=== PATIENT | female | born 1955 | race African-American/Black ===

== ENCOUNTER → 2016-12-09 | Outpatient (CLI) | payer BC ==
[2014-11-17 13:15] VITALS: BP 155/77
[~2016-12-09] MED LIST: BENZ200C39 PO; BUDE10.22 IH; CITA10TA4 PO; COD1CAPS2 PO; CYCL10TA2 PO; HYDR1TAB26 PO; NAPR220C4 PO; PANT40TA5 PO; PROAIR HFA8.5 GM IH; TRAM50TA PO
--- NOTE | 2016-12-09 10:30 | KCIC ---
PROCEDURE MRI cervical spine without contrast. HISTORY Cervical radiculopathy, degenerative joint disease, new right arm pain and numbness into the right hand, previous fusion in 2009 TECHNIQUE Multiplanar, multi sequential non contrast MR imaging was performed of the cervical spine. COMPARISON July 05, 2012 FINDINGS There is some motion degradation. There again has been anterior cervical fusion C5, C6, C7. Cervical vertebral body AP alignment is adequate. Cervical cord caliber is within normal limits, no obvious or expansile signal abnormality, limited evaluation for subtle signal change in part from motion. There is no significant abnormality of the cervical medullary junction. There is no significant marrow edema. Intervertebral disc spaces at non fused levels are adequate. C2-C3: Neural foramina and spinal canal are adequate. There is minimal left uncovertebral degenerative change. C3-4: There is bilateral facet hypertrophic change, also uncovertebral degenerative change greater on the left. There is negligible posterior bulge. Central canal is borderline 10 millimeters. There is likely moderate to severe neural foramina compromise bilaterally somewhat greater on the left. C4-5: Spinal canal is adequate. There is severe bilateral facet degenerative change greater on the left. Spinal canal is adequate. Right neural foramen is adequate. There is fairly severe narrowing of the left neural foramen. C5-C6: There is bilateral facet hypertrophic change. Spinal canal is adequate. Neural foramina are overall adequate. C6-C7: Spinal canal is adequate. Right neural foramen is adequate, suspected moderate to severe narrowing of the left neural foramen by osteophytes. C7-T1: Central canal is borderline 10 millimeters. There is facet hypertrophic change greater on the left. Right neural foramen is adequate, moderate to severe narrowing of the left neural foramen. IMPRESSION 1. There has been anterior cervical fusion at C5, C6, C7. 2. There is no significant cervical spinal stenosis. 3. There is multilevel facet and uncovertebral degenerative change which contributes to multilevel neural foramina compromise as stated greatest bilaterally at C3-4 and on the left at C4-C5, C6-7, and C7-T1. Electronically signed by: Jackson Avila MD (Dec 09, 2016 10:29:40)
== END | disposition home or self-care (01) ==
LOC: KCIC MRI 09:07
PROVIDERS: ATTEND Family Medicine
DX: Z12.31 Encounter for screening mammogram for malignant neoplasm of breast (principal); M54.12 Radiculopathy, cervical region
CPT/HCPCS: 72141; G0202; 77067

== ENCOUNTER → 2016-12-17 | Outpatient (CLI) | payer BC ==
[2014-11-17 13:15] VITALS: BP 155/77
--- NOTE | 2016-12-17 16:00 | KCIC ---
Bilateral breast ultrasound: Reason for examination: Nodular densities on screening mammogram. Comparison is made to mammographic exam dated 12/09/2016. Ultrasound was performed in the areas of clin mammographic concern bilaterally. In the right breast at the 3 o'clock position 8 centimeters from the nipple, there is a small 5.9 millimeter hypoechoic fibrocystic type lesion without a benign appearance. Revaluation in 6 months is recommended. No other focal lesions are seen in the right breast. No abnormal lymph nodes are seen in the right axilla. In the left breast at the 2 o'clock position 4 centimeters from the nipple, there is a 1.1 centimeter lobulated nodule which would correspond with the area of mammographic concern. Further evaluation with ultrasound-guided biopsy is recommended. No other focal lesions are seen. No abnormal lymph nodes are seen in left axilla. Impression: Benign appearing fibrocystic type lesion measuring 5.9 millimeters in the right breast at the 3 o'clock position. Recommend 6 month sonographic followup. 1.1 centimeters solid-appearing lobulated nodule in the left breast at the 2 o'clock position 4 centimeters from the nipple. Recommend ultrasound-guided biopsy. BI-RADS category 4: Suspicious. Ultrasound biopsy is recommended. The patient was notified of these findings at the time of her examination. Dr. Zulma Palacios was called with this report on 12/17/2016 at 3:54 p.m. This patient's information has been entered into a reminder system for the patient to be notified with the results of this examination and a target date for her next mammograms. Electronically signed by: Alka Batista MD (Dec 17, 2016 15:58:34)
== END | disposition home or self-care (01) ==
LOC: KCIC US 13:26
PROVIDERS: ATTEND Family Medicine
DX: R92.8 Other abnormal and inconclusive findings on diagnostic imaging of breast (principal)
CPT/HCPCS: 76641

== ENCOUNTER → 2016-12-31 | Outpatient (CLI) | payer BC ==
[2014-11-17 13:15] VITALS: BP 155/77
[~2016-12-31] MED LIST changes: +IOHEXOL 300 MG/ML 50 ML VIAL. IT ONE; +LIDOCAINE 1% Multi-Dose 20 ML VIAL. ID ONE
--- NOTE | 2016-12-31 10:26 | KCIC ---
PROCEDURE Fluoroscopic guided lumbar puncture for cervical myelography; cervical spine CT myelogram. HISTORY Neck pain and bilateral upper extremity radiculopathy. Limited range of motion. TECHNIQUE The risks of the procedure were discussed with the patient and written and verbal consent was obtained. A time-out was performed. Fluoroscopic imaging of the lumbar spine was performed and a site overlying L4-L5 was selected for needle entry. The skin overlying this region was sterilely prepped, draped and infiltrated with 1 percent lidocaine. A 25 gauge needle was advanced into the thecal sac and appropriate needle tip position was confirmed with spontaneous CSF within the needle hub. 10 cc Omnipaque 300 was then injected into the thecal sac. The needle was removed and a sterile bandage was placed at the needle entry site. The contrast column was then advanced to the cervical levels. Three fluoroscopic images were obtained in the prone lateral and bilateral oblique positions. The total fluoroscopy time was 54 seconds. The patient was then transferred to the CT suite for the post injection CT portion of the exam. The patient tolerated the procedure without difficulty was discharged in stable condition. One or more of the following individualized dose reduction techniques were utilized for this examination: 1. Automated exposure control; 2. Adjustment of the mA and/or kV according to patient size; 3. Use of iterative reconstruction technique. COMPARISON MRI dated 12/09/2016. 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 There is no evidence of instrumentation fracture or loosening. There is slight deformation of the ventral aspect of the spinal cord at C5-C6 due to posterior bony bridging, without significant central canal stenosis. There is minimal anterolisthesis of C3 on C4 and C4 on C5. The vertebral bodies are normal in height. There is anterior endplate osteophytosis at C4-C5. The skullbase and posterior fossa are unremarkable. There is a small inferior endplate Schmorl's node within the right aspect of C2. At C2-C3, there is endplate remodeling with a right inferior endplate Schmorl's node. There is no stenosis. At C3-C4, there is a disc bulge and endplate remodeling. There is left greater than right uncovertebral arthropathy. There is severe facet arthropathy. There is moderate to severe right and severe left foraminal stenosis. There is deviation of the left ventral nerve ramus. There is slight thickening or buckling of the ligamentum flavum. There is mild central canal stenosis measuring 9.1 mm in anterior-posterior dimension. At C4-C5, there is a disc bulge and endplate remodeling. There is anterior endplate osteophytosis. There is uncovertebral arthropathy. There is moderate right and severe left facet arthropathy. There is moderate right and moderate to severe left foraminal stenosis. There is deviation of the left ventral nerve ramus. At C5-C6, there is instrumented fusion. There is prominent posterior bony bridging which slightly flattens the ventral aspect of the spinal cord. There is left uncovertebral arthropathy. There is moderate right and mild left facet arthropathy. There is [id number] left foraminal stenosis. At C6-C7, there is instrumented fusion. There is left uncovertebral arthropathy. There is deformity of the left lamina, likely postoperative in etiology. There is mild left greater than right facet arthropathy. There is moderate to severe left foraminal stenosis. At C7-T1, there is a disc bulge and endplate remodeling. There is no stenosis. IMPRESSION 1. Instrumented anterior spinal fusion and interbody fusion at C5 through C7. There is bony bridging at the fused levels. Prominent posterior bony bridging at C5-C6 slightly deforms the ventral aspect of the spinal cord without significant central canal stenosis. There is uncovertebral and facet arthropathy at these levels, contributing to mild to moderate left foraminal stenosis at C5-C6 and moderate to severe left foraminal stenosis at C6-C7. 2. Multilevel degenerative change throughout the remainder of the cervical spine, described in detail above. This results in moderate severe right and severe left foraminal stenosis and mild central canal stenosis at C3-C4 and moderate right and moderate to severe left foraminal stenosis at C4-C5. Electronically signed by: Yessy Carlin (Dec 31, 2016 10:24:40)
== END | disposition home or self-care (01) ==
LOC: KCIC 08:09
PROVIDERS: ATTEND Neurological Surgery
DX: M48.06 Spinal stenosis, lumbar region (principal)
CPT/HCPCS: 72126; 72240; Q9967

== ENCOUNTER → 2017-01-12 | Outpatient (CLI) | payer BC ==
[~2017-01-12] VITALS: Ht 160 cm; Wt 84.8 kg
[~2017-01-12] MED LIST changes: +ASPI-482 PO; -IOHEXOL 300 MG/ML 50 ML VIAL. IT ONE; -LIDOCAINE 1% Multi-Dose 20 ML VIAL. ID ONE; +NAPR500T PO
[2017-01-12 08:56] VITALS: BP 144/74
--- NOTE | 2017-01-12 10:53 | RAD ---
Indication: Left breast mass. Patient presents for ultrasound-guided biopsy. The patient was brought to the ultrasound suite and placed on the table in the supine position. Ultrasound imaging of the left breast was performed to evaluate the appropriate entry site. The left breast was then prepped and draped in the usual sterile fashion. A small amount of 1% lidocaine was utilized for local anesthesia. A 14-gauge Bard needle was advanced and placed with the tip adjacent to the lobulated mass at the 2:00 location of the left breast. A total of 4 core biopsies were performed. A localizer clip was deployed adjacent to the mass. Hemostasis was obtained using manual compression. The patient tolerated the procedure well and left the department in stable condition. Impression: Successful ultrasound-guided biopsy of the lobulated hypoechoic mass at the 2:00 location of the left breast. Results are currently pending.
== END | disposition home or self-care (01) ==
LOC: US 08:19
PROVIDERS: ATTEND Surgery
DX: N63 Unspecified lump in breast (principal)
CPT/HCPCS: 76942; C1713; G0206; 77065

== ENCOUNTER → 2017-01-23 | Outpatient (CLI) | payer BC ==
[~2017-01-23] VITALS: Ht 160 cm; Wt 84.8 kg
[~2017-01-23] MED LIST changes: +LIDOCAINE 1%/EPI 1:100,000 20 ML VIAL. INJ ONE
[2017-01-23 07:50] VITALS: BP 135/74
--- NOTE | 2017-01-23 09:19 | RAD ---
DATE: 01/23/2017 EXAM: DIGITAL DIAGNOSTIC RT, BREAST RIGHT HISTORY: Suspicious screening study and outside ultrasound COMPARISON: 12/09/2016, 12/17/2016 This study was interpreted with the benefit of Computerized Aided Detection (CAD). FINDINGS: Additional views of the right breast were obtained and correlated with the screening study. The fibroglandular pattern is heterogeneously dense. There is a small, smooth, 6 mm nodule in the posterior aspect of the right breast at the 3:00 location, as best delineated on the straight mediolateral and MLO views. It is only intermittently visualized on the cc views due to overlying fibroglandular shadows. No associated microcalcifications are seen. Right breast ultrasound, 01/23/2017: A targeted ultrasound exam of the right breast was performed. Heterogeneous fibroglandular shadows are seen. No mass is identified to correspond with the nodule seen on the mammograms. There are branching ducts visualized, most prominent centrally. The possible nodule described on the outside ultrasound exam cannot be reproduced sonographically. Ultrasound-guided biopsy is therefore not feasible. Stereotactic biopsy of the nodule seen mammographically may be problematic due to its far posterior location. IMPRESSION: The mammograms demonstrate a small smooth nodule at the 3:00 location in the right breast. No sonographic correlate could be identified. Given the patient's known left breast cancer, MR imaging of the breasts may be useful for further evaluation. BI-RADS CATEGORY: 0 INCOMPLETE: NEEDS ADDITIONAL IMAGING EVALUATION AND/OR PRIOR MAMMOGRAMS FOR COMPARISON. RECOMMENDED FOLLOW-UP: ADD ADDITIONAL IMAGING PQRS compliance statement: Patient information was entered into a reminder system with a target due date for the next mammogram. Mammography is a sensitive method for finding small breast cancers, but it does not detect them all and is not a substitute for careful clinical examination. A negative mammogram does not negate a clinically suspicious finding and should not result in delay in biopsying a clinically suspicious abnormality. "Our facility is accredited by the [employer] Mammography Program."
== END | disposition home or self-care (01) ==
LOC: US 07:11
PROVIDERS: ATTEND Surgery
DX: N63 Unspecified lump in breast (principal)
CPT/HCPCS: 76641; G0206; 77065

== ENCOUNTER → 2017-02-24 | Outpatient (CLI) | payer BC ==
[2017-02-24] VITALS (8 sets, daily range): BP systolic 112–139; BP diastolic 59–77
[~2017-02-24] VITALS: Ht 162.6 cm; Wt 81.6 kg
[~2017-02-24] MED LIST changes: -BENZ200C39 PO; +BENZ200C47 PO; +CITA40TA5 PO; +CLINDAMYCIN 600MG PREMIX 50 ML IV ONE; +HEPARIN PF 500 UNIT/5 ML DISP.SYRIN. IV ONE; +LIDOCAINE 1% / SOD BICARB 8.4% 20 ML VIAL. IJ ONE; +LIDOCAINE 1%/EPI 1:100,000 20 ML VIAL. ONE; +MIDAZOLAM HCL/PF 5 MG/5 ML VIAL. IV ONE; +MIDAZOLAM HCL/PF 5 MG/5 ML VIAL. ONE; +TRAZ50TA15 PO; +VANCOMYCIN 1GM IVPB FOR OMNI 250 ML ONE; +fentaNYL PF VIAL 100 MCG/2 ML VIAL IV ONE; +fentaNYL PF VIAL 100 MCG/2 ML VIAL ONE
[2017-02-24 07:44] LABS: BASO # 0.1 x10^3/uL (0.0-0.2); BASO % 1 % (0-3); EOS % 0 % (0-3); HEMATOCRIT 36.8 % (36.0-47.0); LYMPH # 0.8 x10^3/uL (1.0-4.8); LYMPH % 11 % (24-48); MEAN CORPUSCULAR HEMOGLOBIN 30 pg (25-35); MEAN CORPUSCULAR HGB CONC 35 g/dL (31-37); MEAN CORPUSCULAR VOLUME 85 fL (79-100); MONO % 4 % (0-9); NEUT % 84 % (31-73); PLATELET COUNT 202 x10^3/uL (140-400); RED BLOOD COUNT 4.31 x10^6/uL (3.50-5.40); RED CELL DISTRIBUTION WIDTH 19.6 % (11.5-14.5); WHITE BLOOD COUNT 7.4 x10^3/uL (4.0-11.0)
[2017-02-24 07:54] LABS: PROTHROMBIN TIME PATIENT 12.9 SEC (11.7-14.0)
--- NOTE | 2017-02-24 08:58 | PDOC ---
MODERATE SEDATION ASSESSMENT RISKS/ALTERNATIVES Risks/Alternatives Risks and alternatives of this type of sedation and procedure discussed with: RISK/ALTERNATIVES: Patient H & P ON CHART H & P H & P on chart and reviewed for co-morbid conditions and appropriate labs. H&P ON CHART: Yes STATUS PREG STATUS ASSESSED: N/A MEDS/ALLERGIES REVIEWED Meds/Allergies Reviewed Medications and Allergies including time and route of recently administered narcotics and sedatives. MEDS/ALLERGIES REVIEWED: Yes ASA RATING ASA RATING: II AIRWAY ASSESSMENT Airway Assessment Airway patency, oral function limitations, presence of caps, crowns, dentures, partials, and ability to extend neck assessed. AIRWAY ASSESSMENT: Yes MALLAMPATI SCORE MALLAMPATI SCORE: II PRE-SEDATION ASSESSMENT PRE-SEDATION ASSESSMENT: Yes BIPIN MCGARRY MD Feb 24, 2017 08:58
--- NOTE | 2017-02-24 09:01 | PDOC1 ---
History and Physical Date of Procedure Date of Admission 02/24/17 Procedure Procedure Sono/fluoro guided Power Port insertion Indication Indication 61 YO female with Breast Cancer---Power Port requested for chemotx Past Medical History Past Medical History See Nursing Pre Procedure PMH Past Surgical History Past Surgical History See Nursing Pre Procedure PSH Current Medications Current Medications Current Medications Heparin Sodium (Porcine) (Hep Lock Adult) 500 unit STK-MED ONCE IV ; Start 02/24 at 08:26; Stop 02/24/17 at 08:27; Status DC Lidocaine/ Epinephrine (Xylocaine 1%-Epi 1:100,000) 20 ml STK-MED ONCE .ROUTE ; Start 02/24/17 at 08:26; Stop 02/24/17 at 08:27; Status DC Heparin Sodium/ Sodium Chloride 500 ml @ As Directed STK-MED ONCE .ROUTE ; Start 02/24/17 at 08:26; Stop 02/24/17 at 08:27; Status DC Vancomycin HCl 250 ml @ As Directed STK-MED ONCE .ROUTE ; Start 02/24/17 at 08: 27; Stop 02/24/17 at 08:28; Status DC Active Scripts Active Reported Aspir 81 (Aspirin) 81 Mg Tablet. 81 Mg PO DAILY Naprosyn (Naproxen) 500 Mg Tablet 500 Mg PO BID PRN Cyclobenzaprine Hcl 10 Mg Tablet 10 Mg PO PRN TID Proair Hfa Inhaler (Albuterol Sulfate) 8.5 Gm Hfa.aer.ad 8.5 Gm IH PRN DAILY Pantoprazole Sodium 40 Mg Tablet. 40 Mg PO DAILY Tramadol Hcl 50 Mg Tablet 50 Mg PO DAILY Hydrocodon-Acetaminoph 7.5-500 (Hydrocodone Bit/Acetaminophen) 1 Each Tablet 1 Each PO PRN BID Allergies Allergies: Coded Allergies: Penicillins (Verified Allergy, Intermediate, 11/17/14) cefaclor (Verified Allergy, Intermediate, 11/17/14) latex (Verified Allergy, Intermediate, 11/17/14) Physical Exam Lungs: Clear to auscultation Heart: Regular rate Psych/Mental Status: Mental status NL Assessment Assessment 61 YO female with breast cancer Problems: Plan Plan Image guided Power Port insertion for chemotx BIPIN MCGARRY MD Feb 24, 2017 09:01
--- NOTE | 2017-02-24 09:59 | PDOC ---
Exam Money Room Teller Money Room Teller Tres Assistant Property Manager Assistant Property Manager Luis Antonio Gramajo Pre-Procedure Diagnosis Pre-Procedure Diagnosis 61 YO female with new dx of breast cancer---Port insertion requested for neoadjuvant chemotx Post-Procedure Diagnosis Post-Procedure Diagnosis Same Procedure Performed Procedure Performed Sono/fluoro guided tunneled Power Port insertion Type of Anesthesia Type of Anesthesia Local + Mod sedation Estimated Blood Loss EBL: Minimal Drain/Tubes Drains/Tubes Right IJ 8F tunneled Power Port Condition of Patient Condition of Patient Stable. No apparent complication. Disposition Disposition Home from [facility] post recovery, if no problems. F/u with Dr Bonds. OK to use Power Port. Full report to follow. BIPIN MCGARRY MD Feb 24, 2017 09:59
--- NOTE | 2017-02-25 07:21 | RAD ---
Ultrasound and fluoroscopy guided right IJ power port insertion Indication: 61-year-old female with recently diagnosed breast cancer. Image guided power port insertion for neoadjuvant chemotherapy has been requested by oncology. Fluoroscopy time: 0.7 minutes Kerma-area product: 1 Gycm2 Moderate sedation: 37 minutes moderate sedation was provided utilizing a total of 3.5 mg Versed and 175 mcg fentanyl, IV. The patient was appropriately monitored by a qualified independent observer throughout the course of moderate sedation. Antibiotic: A single dose of Clindamycin was administered within 1 hour of the procedure start time. Cephalosporin was withheld due to allergy. Consent: The procedure was explained in its entirety to the patient and/or the patient's designated retail wireless sales representative by a member of the treatment team. This included a discussion of risks and benefits and commonly accepted alternatives to the procedure, as well as expected consequences of no treatment at all. Discussion of risks included, but was not limited to, those that are most frequent and those that are rare, but possibly severe or life-threatening, as well as the possibility of unforeseen complications. Sterility: All elements of maximal sterile barrier technique, hand hygiene, skin preparation, and, if ultrasound was used, sterile ultrasound technique were followed. Procedure: Informed consent was obtained from the patient. She was placed supine on the angiography table. Preliminary ultrasound examination of right neck revealed wide patency of right internal jugular vein, which was documented with a single hard copy ultrasound image. Right neck and upper chest were then prepped and draped in the usual sterile fashion, utilizing all elements of maximal sterile barrier technique, as described above. Moderate sedation was provided with IV Versed and fentanyl. 600 mg clindamycin was given IV, prophylactically. Using aseptic technique and local anesthesia, a small skin incision was made lateral to right internal jugular vein, just above clavicle. Using aseptic technique, local anesthesia, direct ultrasound guidance, and the micropuncture system, successful percutaneous entry was achieved into right internal jugular vein. The right IJ venostomy tract was then dilated and the 8 Croatian catheter from a Bard power port system was easily advanced centrally through an 8.5 Croatian peel-away sheath, and was positioned with this tip at the level of mid right atrium utilizing fluoroscopic guidance. A skin site suitable for placement of the power port body was then selected and marked along upper anterior aspect of right chest, overlying anterior aspect of right second rib. Using aseptic technique and local anesthesia, a horizontally oriented skin incision was made in this location. A subcutaneous chest wall pocket was then created and was packed with vancomycin soaked gauze. A subcutaneous tunnel was then fashioned between the chest wall pocket and the initial supraclavicular incision. The 8 Croatian power port catheter was then pulled through the subcutaneous tunnel from superior to inferior, utilizing the tunneling device provided. The catheter was then trimmed to an appropriate length and was connected to the power port body, which had been previously flushed with, and soaked in, vancomycin solution. The vancomycin soaked gauze was then removed from the chest wall pocket, which was then copiously irrigated with vancomycin solution. The power port body was then easily introduced into the chest wall pocket and was secured in place utilizing two 2-0 Vicryl sutures. The power port was then accessed utilizing a Rico needle, was documented to flush and aspirate normally, and was packed with heparinized saline. The chest incision was then closed with 2-0 Vicryl, 4-0 Vicryl, Steri-Strips, and sterile dressing. The small supraclavicular incision was closed with 4-0 Vicryl, Steri-Strips, and sterile dressing. Patient tolerated the procedure well without apparent complication. Satisfactory position of the power port was confirmed with a single fluoroscopic spot image. Impression: Successful, uneventful ultrasound and fluoroscopy guided placement of right IJ 8 Croatian tunneled power port, as described.
== END | disposition home or self-care (01) ==
LOC: INTRAD 07:16
PROVIDERS: ATTEND Internal Medicine Hematology & Oncology
DX: C50.919 Malignant neoplasm of unspecified site of unspecified female breast (principal); I10 Essential (primary) hypertension; J45.909 Unspecified asthma, uncomplicated; E66.9 Obesity, unspecified; F41.9 Anxiety disorder, unspecified; F32.9 Major depressive disorder, single episode, unspecified; Z68.43 Body mass index [BMI] 50.0-59.9, adult; Z86.69 Personal history of other diseases of the nervous system and sense organs; Z87.891 Personal history of nicotine dependence; Z79.01 Long term (current) use of anticoagulants
CPT/HCPCS: 36415; 36561; 76937; 77001; 85027; 85610; 99152; 99153; C1751; C1892; J2250; J3010; J3490

== ENCOUNTER 2018-05-05 11:53 | Emergency (ER) | payer OTHER ==
[~2018-05-05] VITALS: Ht 162.6 cm; Wt 90.3 kg
[~2018-05-05 11:53] MED LIST changes: -CLINDAMYCIN 600MG PREMIX 50 ML IV ONE; -HEPARIN PF 500 UNIT/5 ML DISP.SYRIN. IV ONE; -LIDOCAINE 1% / SOD BICARB 8.4% 20 ML VIAL. IJ ONE; -LIDOCAINE 1%/EPI 1:100,000 20 ML VIAL. INJ ONE; -LIDOCAINE 1%/EPI 1:100,000 20 ML VIAL. ONE; -MIDAZOLAM HCL/PF 5 MG/5 ML VIAL. IV ONE; -MIDAZOLAM HCL/PF 5 MG/5 ML VIAL. ONE; +NAPR-683 PO; -NAPR500T PO; +TRAZ-85 PO; -TRAZ50TA15 PO; -VANCOMYCIN 1GM IVPB FOR OMNI 250 ML ONE; -fentaNYL PF VIAL 100 MCG/2 ML VIAL IV ONE; -fentaNYL PF VIAL 100 MCG/2 ML VIAL ONE
[2018-05-05 12:30] VITALS: BP 136/65
--- NOTE | 2018-05-05 12:32 | PHYS DOC ---
Past Medical History Past Medical History: Asthma, Cancer Additional Past Medical Histor: Chemo and radiation, now in remission 05/05/18 Past Surgical History: Cancer Surgery Additional Past Surgical Histo: C-7 fusion Alcohol Use: None Drug Use: None Adult General Chief Complaint Chief Complaint: DIZZY/LIGHT HEADED [facility] HPI Patient is a 62 year old F P/W DIZZINESS. DESCRIBED SHE FEELS LIKE SHE IS SPINNING WORSE WITH HEAD MOVEMENT A/W RINGING IN THE EARS. WORSE LAST NIGHT BETTER SINCE LAYING DOWN IN THE ER. NO CP MILD H/A NO DOUBLE VISION History of breast cancer which is currently in remission. No fever she has really never felt this way before. She was feeling like she might fall over so she came to the ER for evaluation. Review of Systems Review of Systems Constitutional: Denies fever or chills [] Eyes: Denies change in visual acuity, redness, or eye pain [] Cardiovascular: No additional information not addressed in HPI [] GI: Denies abdominal pain, nausea, vomiting, bloody stools or diarrhea [] : Denies dysuria or hematuria [] Musculoskeletal: Denies back pain or joint pain [] Integument: Denies rash or skin lesions [] Endocrine: Denies polyuria or polydipsia [] All other systems were reviewed and found to be within normal limits, except as documented in this note. Current Medications Current Medications Current Medications Medications (Trade) Dose Ordered Sig/Lebron Start Time Stop Time Status Last Admin Dose Admin Meclizine HCl (Antivert) 25 mg 1X ONCE 05/05/18 12:30 05/05/18 12:31 DC 05/05/18 12:53 25 MG Sodium Chloride 1,000 ml @ 1,000 mls/hr 1X ONCE 05/05/18 12:30 05/05/18 13:29 DC 05/05/18 12:54 1,000 MLS/HR Allergies Allergies Allergies Coded Allergies Type Severity Reaction Last Updated Verified Penicillins Allergy Intermediate 04/01/17 Yes cefaclor Allergy Intermediate 04/01/17 Yes latex Allergy Intermediate 04/01/17 Yes Physical Exam Physical Exam Constitutional: Well developed, well nourished, no acute distress, non-toxic appearance. [] HENT: Normocephalic, atraumatic, bilateral external ears normal, oropharynx moist, no oral exudates, nose normal. [] Eyes: PERRLA, EOMI, conjunctiva normal, no discharge. [] Neck: Normal range of motion, no tenderness, supple, no stridor. [] Cardiovascular:Heart rate regular rhythm, no murmur [] Lungs & Thorax: Bilateral breath sounds clear to auscultation [] Abdomen: Bowel sounds normal, soft, no tenderness, no masses, no pulsatile masses. [] Skin: Warm, dry, no erythema, no rash. [] Back: No tenderness, no CVA tenderness. [] Extremities: No tenderness, no cyanosis, no clubbing, ROM intact, no edema. [] Neurologic: Alert and oriented X 3, normal motor function, normal sensory function, no focal deficits noted. []Wlnytw-ptvb-eewmun intact there is no nystagmus visual gibbons are intact. Psychologic: Affect normal, judgement normal, mood normal. [] Current Patient Data Vital Signs Vital Signs Date Time Temp Pulse Resp B/P (MAP) Pulse Ox O2 Delivery O2 Flow Rate FiO2 05/05/18 14:30 104 18 98 05/05/18 12:00 97.8 145/81 (102) 97.8 Lab Values Laboratory Tests Test 05/05/18 12:33 05/05/18 13:20 White Blood Count 8.6 x10^3/uL (4.0-11.0) Red Blood Count 3.45 x10^6/uL (3.50-5.40) L Hemoglobin 10.9 g/dL (12.0-15.5) L Hematocrit 30.2 % (36.0-47.0) L Mean Corpuscular Volume 88 fL (79-100) Mean Corpuscular Hemoglobin 32 pg (25-35) Mean Corpuscular Hemoglobin Concent 36 g/dL (31-37) Red Cell Distribution Width 20.8 % (11.5-14.5) H Platelet Count 192 x10^3/uL (140-400) Neutrophils (%) (Auto) 87 % (31-73) H Lymphocytes (%) (Auto) 7 % (24-48) L Monocytes (%) (Auto) 4 % (0-9) Eosinophils (%) (Auto) 1 % (0-3) Basophils (%) (Auto) 1 % (0-3) Neutrophils # (Auto) 7.5 x10^3uL (1.8-7.7) Lymphocytes # (Auto) 0.6 x10^3/uL (1.0-4.8) L Monocytes # (Auto) 0.3 x10^3/uL (0.0-1.1) Eosinophils # (Auto) 0.1 x10^3/uL (0.0-0.7) Basophils # (Auto) 0.1 x10^3/uL (0.0-0.2) Segmented Neutrophils % 83 % (35-66) H Band Neutrophils % 5 % (0-9) Lymphocytes % 6 % (24-48) L Monocytes % 4 % (0-10) Eosinophils % 1 % (0-5) Basophils % 1 % (0-3) Platelet Estimate Adequate (ADEQUATE) Anisocytosis Mod Sodium Level 135 mmol/L (136-145) L Potassium Level 3.8 mmol/L (3.5-5.1) Chloride Level 103 mmol/L (98-107) Carbon Dioxide Level 26 mmol/L (21-32) Anion Gap 6 (6-14) Blood Urea Nitrogen 15 mg/dL (7-20) Creatinine 0.7 mg/dL (0.6-1.0) Estimated GFR (Cockcroft-Gault) 103.3 BUN/Creatinine Ratio 21 (6-20) H Glucose Level 85 mg/dL (70-99) Calcium Level 8.8 mg/dL (8.5-10.1) Total Bilirubin 0.8 mg/dL (0.2-1.0) Aspartate Amino Transferase (AST) 25 U/L (15-37) Alanine Aminotransferase (ALT) 29 U/L (14-59) Alkaline Phosphatase 90 U/L (46-116) Troponin I Quantitative < 0.017 ng/mL (0.000-0.055) Total Protein 7.4 g/dL (6.4-8.2) Albumin 3.7 g/dL (3.4-5.0) Albumin/Globulin Ratio 1.0 (1.0-1.7) Urine Collection Type Unknown Urine Color Yellow Urine Clarity Clear Urine pH 7.0 Urine Specific [place] 1.010 Urine Protein Negative mg/dL (NEG-TRACE) Urine Glucose (UA) Negative mg/dL (NEG) Urine Ketones (Stick) Negative mg/dL (NEG) Urine Blood Negative (NEG) Urine Nitrite Negative (NEG) Urine Bilirubin Negative (NEG) Urine Urobilinogen Dipstick 0.2 mg/dL (0.2 mg/dL) Urine Leukocyte Esterase Moderate (NEG) Urine RBC 0 /HPF (0-2) Urine WBC 1-4 /HPF (0-4) Urine Squamous Epithelial Cells Few /LPF Urine Bacteria 0 /HPF (0-FEW) Laboratory Tests 05/05/18 12:33 Laboratory Tests 05/05/18 12:33 EKG EKG [] Interpretation Time: EKG shows a sinus tach rate of 1:15 no ischemia no STEMI interpreted by me time of encounter Radiology/Procedures Radiology/Procedures [] Impressions: Findings: Ventricles and sulci are within normal limits for age. No midline shift or mass effect. There is a normal variant cavum septa pellucida anomaly. Brain parenchyma is of normal attenuation. No hemorrhage or extra axial collection. Posterior fossa and brainstem unremarkable. Visualized paranasal sinuses and mastoid air cells are clear. No apparent calvarial abnormality. IMPRESSION: 1. No evidence of acute intracranial abnormality. Electronically signed by: Carlos Lee MD (05/05/2018 12:47 PM) [id number] DICTATED and SIGNED BY: CARLOS LEE MD DATE: 05/05/18 5877 Course & Med Decision Making Course & Med Decision Making Pertinent Labs and Imaging studies reviewed. (See chart for details) []62-year-old female history of breast cancer currently in remission present with sounds most like vertigo some dizziness there are no objective features to suggest central vertigo. CT head was done to rule out mass given her previous history this looks good. Meclizine was given and fluids and patient felt better at time of discharge. EKG showed no ischemia there was no chest pain this does not sound like it is cardiac at all. CT head is negative acute. Patient feeling better in the emergency room after treatment. Labwork is essentially unremarkable I did talk to the patient about return precautions and she is agreeable to the plan. I suspect peripheral vertigo at this time Dragon Disclaimer Dragon Disclaimer This electronic medical record was generated, in whole or in part, using a voice recognition dictation system. Departure Departure Impression: Primary Impression: Vertigo Disposition: 01 HOME, SELF-CARE Condition: STABLE Referrals: WANDA RIVERA MD (PCP) Scripts Meclizine Hcl (MECLIZINE HCL) 25 Mg Tablet 25 MG PO PRN TID PRN for DIZZINESS, #30 dizziness Prov: SHADY ARANGO MD 05/05/18 SHADY ARANGO MD May 05, 2018 12:32
[2018-05-05 12:48] LABS: BASO # 0.1 x10^3/uL (0.0-0.2); BASO % 1 % (0-3); EOS # 0.1 x10^3/uL (0.0-0.7); EOS % 1 % (0-3); HEMATOCRIT 30.2 % (36.0-47.0); HEMOGLOBIN 10.9 g/dL (12.0-15.5); LYMPH # 0.6 x10^3/uL (1.0-4.8); LYMPH % 7 % (24-48); MEAN CORPUSCULAR HEMOGLOBIN 32 pg (25-35); MEAN CORPUSCULAR HGB CONC 36 g/dL (31-37); MEAN CORPUSCULAR VOLUME 88 fL (79-100); MONO # 0.3 x10^3/uL (0.0-1.1); MONO % 4 % (0-9); NEUT # 7.5 x10^3uL (1.8-7.7); NEUT % 87 % (31-73); PLATELET COUNT 192 x10^3/uL (140-400); RED BLOOD COUNT 3.45 x10^6/uL (3.50-5.40); RED CELL DISTRIBUTION WIDTH 20.8 % (11.5-14.5); WHITE BLOOD COUNT 8.6 x10^3/uL (4.0-11.0)
--- NOTE | 2018-05-05 12:50 | RAD ---
CT HEAD WO CONTRAST dated 05/05/2018 12:39 PM Indication:..DIZZY, NO PRIORS. Comparison: No comparison is available. Technique: Contiguous axial imaging the head was performed from skull base to vertex. One or more of the following individualized dose reduction techniques were utilized for this examination: 1. Automated exposure control 2. Adjustment of the mA and/or kV according to patient size 3. Use of iterative reconstruction technique Findings: Ventricles and sulci are within normal limits for age. No midline shift or mass effect. There is a normal variant cavum septa pellucida anomaly. Brain parenchyma is of normal attenuation. No hemorrhage or extra axial collection. Posterior fossa and brainstem unremarkable. Visualized paranasal sinuses and mastoid air cells are clear. No apparent calvarial abnormality. IMPRESSION: 1. No evidence of acute intracranial abnormality. Electronically signed by: Carlos Lee MD (05/05/2018 12:47 PM) [email or web address]
[2018-05-05] MEDS: MECLIZINE HCL 12.5 MG TABLET. PO ONE (12:53)
[2018-05-05] MEDS: IV NORMAL SALINE 1000ML BAG 1,000 ML IV ONE (12:54)
[2018-05-05 13:00] LABS: CALCIUM 8.8 mg/dL (8.5-10.1); CREATININE 0.7 mg/dL (0.6-1.0); GFR 103.3; POTASSIUM 3.8 mmol/L (3.5-5.1)
[2018-05-05 13:05] LABS: ALBUMIN 3.7 g/dL (3.4-5.0); TOTAL BILIRUBIN 0.8 mg/dL (0.2-1.0); TOTAL PROTEIN 7.4 g/dL (6.4-8.2)
--- NOTE | 2018-05-05 13:31 | EKG ---
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
[2018-05-05 13:44] LABS: BILIRUBIN,URINE NEGATIVE (NEG); CLARITY,URINE CLEAR; COLOR,URINE YELLOW; NITRITE,URINE NEGATIVE (NEG); PROTEIN,URINE NEGATIVE (NEG-TRACE); UROBILINOGEN,URINE 0.2 mg/dL (0.2 mg/dL)
[2018-05-05 13:56] LABS: BACTERIA,URINE 0 /HPF (0-FEW); RBC,URINE 0 /HPF (0-2); SQUAMOUS EPITHELIAL CELL,UR FEW /LPF
[2018-05-05 14:04] LABS: % BANDS 5 % (0-9); % BASOS 1 % (0-3); % EOS 1 % (0-5); % LYMPHS 6 % (24-48); % MONOS 4 % (0-10); % SEGS 83 % (35-66); ANISOCYTOSIS MOD; PLT ESTIMATE ADEQUATE (ADEQUATE)
[2018-05-05] MEDS ORDERED: MECL25TA3 PO (14:37)
== END 2018-05-05 14:52 | disposition home or self-care (01) ==
LOC: ER 11:53
DX: R42 Dizziness and giddiness (principal); J45.909 Unspecified asthma, uncomplicated; Z88.0 Allergy status to penicillin; Z88.8 Allergy status to other drugs, medicaments and biological substances; Z91.040 Latex allergy status
CPT/HCPCS: 36415; 70450; 80053; 81001; 84484; 85007; 85025; 87086; 93005; 96360; 99285; J7030; J8597

== ENCOUNTER → 2018-06-28 | Outpatient (CLI) | payer OTHER ==
[~2018-06-28] MED LIST changes: +MECL25TA3 PO
--- NOTE | 2018-06-28 14:24 | KCIC ---
MRI of the cervical spine without contrast 07/04/2018 CLINICAL HISTORY: Chronic neck pain which radiates down the left arm. History of previous cervical spine surgery. TECHNIQUE: Unenhanced T1-weighted, T2-weighted and inversion recovery sagittal and gradient echo and T2-weighted axial images of the cervical spine were obtained. FINDINGS: Comparison is made to a CT cervical myelogram dated 12/31/2016. Mild lateral curvature of the cervical spine is seen convex to the left. There is straightening of the normal cervical lordosis. The patient is post anterior fusion using what appears to be anterior plate, bone screws and bone graft material at C5-6 and C6-7. Degenerative signal changes are seen involving the remaining discs of the cervical spine. Degenerative signal changes are seen within the marrow surrounding these discs. No area of abnormal signal intensity is seen involving the cervical spinal cord. At the C2-3 disc space there is a minimal generalized disc bulge. Degenerative changes are seen involving the uncovertebral and facet joints bilaterally. These findings do not result in significant central spinal canal or neural foraminal stenosis. At the C3-4 disc space there is a mild generalized disc bulge. Degenerative changes are seen involving the uncovertebral and facet joints bilaterally. These findings when combined do not result in significant central spinal canal stenosis. Moderate to severe left greater than right neural foraminal stenosis is seen. At the C4-5 disc space there is a mild generalized disc bulge. Degenerative changes are seen involving the uncovertebral and facet joints, left greater than right. These findings when combined do not result in significant central spinal canal stenosis. Moderate left neural foraminal stenosis is seen. The right neural foramen is patent. At the C5-6 level degenerative changes are seen involving the uncovertebral and facet joints, left greater than right. These findings do not result in significant central spinal canal or neural foraminal stenosis. At the C6-7 disc space degenerative changes are seen involving the uncovertebral and facet joints, left greater than right. These findings when combined do not result in significant central spinal canal stenosis. Mild to moderate left neural foraminal stenosis is seen. The right neural foramen is patent. At the C7-T1 disc space there is a mild generalized disc bulge. Degenerative changes are seen involving the uncovertebral and facet joints bilaterally. These findings when combined do not result in significant central spinal canal or neural foraminal stenosis. IMPRESSION: 1. Post anterior fusion at C5-6 and C6-7. 2. Degenerative changes are seen throughout the cervical spine. These findings do not result in significant central spinal canal stenosis at any level. Moderate to severe left greater than right neural foraminal stenosis is seen at C3-4. Moderate left neural foraminal stenosis is seen at C4-5. Mild to moderate left neural foraminal stenosis is seen at C6-7. Electronically signed by: Tien Dumont MD (06/28/2018 2:21 PM) [facility]
== END | disposition home or self-care (01) ==
LOC: KCIC MRI 11:27
PROVIDERS: ATTEND Family Medicine
DX: M47.22 Other spondylosis with radiculopathy, cervical region (principal); M43.22 Fusion of spine, cervical region; I10 Essential (primary) hypertension; E66.9 Obesity, unspecified; K21.9 Gastro-esophageal reflux disease without esophagitis; M19.90 Unspecified osteoarthritis, unspecified site; F41.9 Anxiety disorder, unspecified; F32.9 Major depressive disorder, single episode, unspecified; Z85.3 Personal history of malignant neoplasm of breast; Z90.710 Acquired absence of both cervix and uterus
CPT/HCPCS: 72141

== ENCOUNTER → 2018-12-24 | Day surgery (SDC) | payer OTHER ==
[~2018-12-24] MED LIST changes: +ALBU2.5V8 IH; +HYDROmorphone 2 MG/ML VIAL IV PRN; +IV RINGERS,LACTATED 1000ML 1,000 ML IV SCH; +LIDOCAINE 2% PF 5 ML VIAL. ONE; +MORPHINE SULFATE 2 MG/ML VIAL. IV PRN; +ONDANSETRON PF 4 MG/2 ML VIAL. IV PRN; -PROAIR HFA8.5 GM IH; +PROCHLORPERAZINE 10 MG/2 ML VIAL. IV PRN; +PROPOFOL 40 ML IV ONE; +TRAZ-118 PO; -TRAZ-85 PO; +fentaNYL PF VIAL 100 MCG/2 ML VIAL IV PRN
[2018-12-24 09:24] VITALS: BP 136/68
== END | disposition home or self-care (01) ==
LOC: ENDOS 08:03
PROVIDERS: ATTEND Internal Medicine Gastroenterology
DX: K64.0 First degree hemorrhoids (principal); D50.0 Iron deficiency anemia secondary to blood loss (chronic); M19.90 Unspecified osteoarthritis, unspecified site; K21.9 Gastro-esophageal reflux disease without esophagitis; Z83.71 Family history of colonic polyps; Z80.3 Family history of malignant neoplasm of breast; Z79.899 Other long term (current) drug therapy; Z79.82 Long term (current) use of aspirin; Z90.710 Acquired absence of both cervix and uterus; Z98.890 Other specified postprocedural states
CPT/HCPCS: 45378; J2001; J2704

== ENCOUNTER → 2019-02-03 | Day surgery (SDC) | payer OTHER, SELFPAY ==
[~2019-02-03] MED LIST changes: -HYDROmorphone 2 MG/ML VIAL IV PRN; -MORPHINE SULFATE 2 MG/ML VIAL. IV PRN; -ONDANSETRON PF 4 MG/2 ML VIAL. IV PRN; -PROCHLORPERAZINE 10 MG/2 ML VIAL. IV PRN; +PROPOFOL 20 ML IV ONE; -PROPOFOL 40 ML IV ONE; -fentaNYL PF VIAL 100 MCG/2 ML VIAL IV PRN
[2019-02-03 14:49] VITALS: BP 120/69
--- NOTE | 2019-02-04 05:19 | CONS ---
DATE OF CONSULTATION: 02/03/2019 REFERRING PHYSICIAN: Zulma Palacios MD REASON FOR CONSULTATION: Anemia. HISTORY OF PRESENT ILLNESS: This is a 63-year-old female whose past medical history is significant for arthritis as well as asthma is seen for upper endoscopy. Previous colonoscopy was unrevealing for source of her anemia. She denies any melena and/or hematochezia. Colonoscopy in 2014 was nonrevealing. She has recovered from her breast cancer treatment. She does take Protonix 40 mg daily for reflux. With continued anemia, hemoglobin of 11.2, she requests additional evaluation. PAST MEDICAL HISTORY: Anemia, arthritis, GERD. ALLERGIES: PENICILLIN, CECLOR AND LATEX. MEDICATIONS: Include albuterol, citalopram, cyclobenzaprine, meclizine, pantoprazole and trazodone. PAST SURGICAL HISTORY: Status post breast surgery, status post hysterectomy. REVIEW OF SYSTEMS: Per records. PHYSICAL EXAMINATION: GENERAL: Reveals a well-nourished, well-developed female who is alert and cooperative, in no acute distress. VITAL SIGNS: Pulse 100, respiratory rate is 18. HEENT: Reveals normocephalic and atraumatic head. Pupils and extraocular muscles are not tested. Sclerae anicteric. NECK: Supple. LUNGS: Clear. CARDIOVASCULAR: Reveals an S1, S2 without S3, S4 or appreciable murmur. ABDOMEN: Reveals soft abdomen, normal bowel sounds without appreciable hepatosplenomegaly. EXTREMITIES: Reveals no cyanosis, clubbing or edema. IMPRESSION: Anemia, history of breast cancer. Upper endoscopy is recommended to further assess rule out Daniel's, malignancy, achalasia and/or peptic stricture. Risks and benefits have been discussed. The patient is willing to proceed at this time. GWYN TURNER MD DR: GALINDO/justin JOB#: [id number] / [id number]
== END ==
LOC: SURG 13:05
PROVIDERS: ATTEND Internal Medicine Gastroenterology
DX: K29.40 Chronic atrophic gastritis without bleeding (principal); D50.9 Iron deficiency anemia, unspecified; Z88.0 Allergy status to penicillin; Z88.8 Allergy status to other drugs, medicaments and biological substances; Z90.710 Acquired absence of both cervix and uterus; Z85.3 Personal history of malignant neoplasm of breast
CPT/HCPCS: 43235; J2001; J2704

== ENCOUNTER → 2019-02-14 | Outpatient (CLI) | payer MEDICARE, OTHER ==
[2019-02-03 14:49] VITALS: BP 120/69
[~2019-02-14] MED LIST changes: -IV RINGERS,LACTATED 1000ML 1,000 ML IV SCH; -LIDOCAINE 2% PF 5 ML VIAL. ONE; -PROPOFOL 20 ML IV ONE
--- NOTE | 2019-02-14 17:31 | KCIC ---
Small bowel follow-through study 02/14/2019 CLINICAL HISTORY: Anemia. TECHNIQUE: A small bowel follow-through study was performed under radiographic and intermittent fluoroscopic control. 2 digital spot radiographs were obtained. The total fluoroscopic time is 31 seconds. FINDINGS: An AP supine digital radiograph of the abdomen/pelvis was obtained as a demonstrator sewing techniques. This demonstrates a nonobstructive bowel gas pattern. No radiopaque calculus is seen. Degenerative changes are seen involving the lumbar spine and both hips. The mucosal pattern of the duodenum, jejunum, ileum and terminal ileum is within normal limits. The small bowel transit time is within normal limits. The cecum is in its normal location within the right lower quadrant of the abdomen. No extrinsic mass effect upon the small bowel is seen. IMPRESSION: Negative study. Electronically signed by: Tien Dumont MD (02/14/2019 5:28 PM) [email or web address]
== END | disposition home or self-care (01) ==
LOC: KCIC 08:05
PROVIDERS: ATTEND Internal Medicine Gastroenterology
DX: D64.9 Anemia, unspecified (principal)
CPT/HCPCS: 74250

== ENCOUNTER → 2019-02-25 | Outpatient (CLI) | payer MEDICARE, OTHER ==
[2019-02-03 14:49] VITALS: BP 120/69
--- NOTE | 2019-02-25 15:12 | RAD ---
Radionuclide gastric emptying study, 02/25/2019: HISTORY: Nausea Study was performed utilizing 6 a solid test meal radiolabeled with 2 mCi of technetium 99m sulfur colloid. The following gastric retention values were obtained: 1 hour-63 percent 2 hours-34 percent 3 hours-24 percent 4 hours-3 percent These values are in the normal range. A gastric T1/2 of 98 minutes was also calculated. IMPRESSION: Normal gastric emptying study. Electronically signed by: Davion Castaneda MD (02/25/2019 3:10 PM) [facility]
== END | disposition home or self-care (01) ==
LOC: NM 09:51
PROVIDERS: ATTEND Internal Medicine Gastroenterology
DX: R11.0 Nausea (principal); J45.909 Unspecified asthma, uncomplicated; I10 Essential (primary) hypertension
CPT/HCPCS: 78264; A9541

== ENCOUNTER → 2020-05-01 | Outpatient (CLI) | payer OTHER ==
[2019-02-03 14:49] VITALS: BP 120/69
[~2020-05-01] MED LIST changes: -COD1CAPS2 PO; +COD1CAPS6 PO; +MECL-75 PO; -MECL25TA3 PO; -PANT40TA5 PO; +PANT40TA77 PO
--- NOTE | 2020-05-01 15:58 | CARD ---
MR#: [id number] Date of Study: 05/01/2020 Ordering Physician: DEWAYNE APPLE, Referring Physician: DEWAYNE APPLE, Tech: Cherie Hinkle [facility] APPROVED REPORT EXAM: Two-dimensional and M-mode echocardiogram with Doppler and color Doppler. Other Information Quality : Fair INDICATION Chest Pain 2D DIMENSIONS RVDd2.4 (2.9-3.5cm)Left Atrium(2D)2.6 (1.6-4.0cm) IVSd0.9 (0.7-1.1cm)Aortic Root(2D)2.6 (2.0-3.7cm) LVDd4.3 (3.9-5.9cm)LVOT Diameter2.0 (1.8-2.4cm) PWd0.9 (0.7-1.1cm)LVDs3.0 (2.5-4.0cm) FS (%) 30.1 %SV48.5 ml LVEF(%)57.7 (>50%) Aortic Valve AoV Peak Erik.139.3cm/sAoV VTI26.4cm AO Peak GR.7.8mmHgLVOT Peak Erik.107.1cm/s LVOT VTI 23.12cmAO Mean GR.4mmHg RUPINDER (VMAX)2.65vi7NDX (VTI)2.80cm2 Mitral Valve MV E Xqwckmvi93.9cm/sMV DECEL [id number] MV A Ufjmnkzi42.0cm/sMV ZHT35qs E/A Ratio0.8MVA (PHT)5.23cm2 TDI E/Lateral E'9.2E/Medial E'13.2 Tricuspid Valve TR P. Bqsvqvez895ei/sRAP JERBYQGK4fbQb TR Peak Gr.87pxObZORO36jiNt Pulmonary Vein S1 Ljxksxli87.7cm/sD2 Wdohqbun38.8cm/s LEFT VENTRICLE The left ventricle is normal size. There is normal left ventricular wall thickness. The left ventricu lar systolic function is normal. The Ejection Fraction is 55-60%. There is normal LV segmental wall m otion. Transmitral Doppler flow pattern is Grade I-abnormal relaxation pattern. RIGHT VENTRICLE The right ventricle is normal size. The right ventricular systolic function is normal. ATRIA The left atrium size is normal. The right atrium size is normal. The interatrial septum is intact wit h no evidence for an atrial septal defect or patent foramen ovale as noted on 2-D or Doppler imaging. AORTIC VALVE The aortic valve is not well visualized. Doppler and Color Flow revealed no significant aortic regurg itation. There is no significant aortic valvular stenosis. MITRAL VALVE The mitral valve is calcified but opens well. There is no evidence of mitral valve prolapse. There is no mitral valve stenosis. Doppler and Color-flow revealed trace mitral regurgitation. TRICUSPID VALVE The tricuspid valve is normal in structure and function. Doppler and Color Flow revealed trace tricus pid regurgitation. The PA pressure was estimated at 31 mmHg. There is no tricuspid valve stenosis. PULMONIC VALVE The pulmonic valve is not well visualized. Doppler and Color Flow revealed no pulmonic valvular regur gitation. There is no pulmonic valvular stenosis. GREAT VESSELS The aortic root is normal in size. The ascending aorta is not well seen. The IVC is normal in size an d collapses >50% with inspiration. PERICARDIAL EFFUSION There is no evidence of significant pericardial effusion. Critical Notification Critical Value: No <Conclusion> The left ventricular systolic function is normal. The Ejection Fraction is 55-60%. There is normal LV segmental wall motion. Transmitral Doppler flow pattern is Grade I-abnormal relaxation pattern. Trace mitral regurgitation. Trace tricuspid regurgitation. The PA pressure was estimated at 31 mmHg. There is no evidence of significant pericardial effusion. Signed by : Corey Chino, Electronically Approved : 05/01/2020 15:57:59
== END | disposition home or self-care (01) ==
LOC: ECHO 09:00
PROVIDERS: ATTEND Internal Medicine Cardiovascular Disease
DX: I34.8 Other nonrheumatic mitral valve disorders (principal)
CPT/HCPCS: 93306

== ENCOUNTER → 2020-10-01 | Outpatient (CLI) | payer OTHER ==
[2019-02-03 14:49] VITALS: BP 120/69
--- NOTE | 2020-10-01 17:25 | KCIC ---
PA and lateral chest radiographs 10/01/2020 CLINICAL HISTORY: Asthma. Shortness of breath. Breast cancer. PA and lateral digital radiographs of chest were obtained. An anterior plate and bone screws overlies the lower cervical spine. The cardiac silhouette is normal in size. The thoracic aorta is mildly tortuous. Surgical clips within the left axilla. No acute pulm onary infiltrate is seen. No pleural effusion or pneumothorax is noted. Degenerative changes are seen involving the thoracic spine. IMPRESSION: No acute abnormality is seen. Electronically signed by: Tien Dumont MD (10/01/2020 5:22 PM) [id number]
== END ==
LOC: KCIC 15:44
PROVIDERS: ATTEND Internal Medicine Pulmonary Disease
DX: J45.909 Unspecified asthma, uncomplicated (principal); Q25.46 Tortuous aortic arch; M47.814 Spondylosis without myelopathy or radiculopathy, thoracic region; Z85.3 Personal history of malignant neoplasm of breast
CPT/HCPCS: 71046